=== PATIENT | female | born 1975 | race Caucasian/White ===

== ENCOUNTER 2024-04-20 06:43 | Day surgery (SDC) | payer BC ==
[2024-04-20] MEDS: Lactated Ringers 1,000 ML IV SCH (07:00)
[2024-04-20] MEDS ORDERED: Lidocaine 2% 5 ML SDV ONE (07:13)
[2024-04-20] MEDS ORDERED: Propofol 200 MG/20 ML SDV ONE (07:13)
[2024-04-20] MEDS ORDERED: Sodium Chloride 0.9% 10 ML Syringe FLUSH PRN (07:15)
[2024-04-20] MEDS ORDERED: Ondansetron 4 MG/2 ML SDV IVPUSH PRN (07:34)
[2024-04-20] MEDS ORDERED: HYDROmorphone 0.5 MG/0.5 ML Syringe IVPUSH PRN (07:34)
[2024-04-20] MEDS ORDERED: fentaNYL 100 MCG/2 ML SDV IVPUSH PRN (07:34)
[2024-04-20] MEDS ORDERED: Sodium Chloride 0.9% 10 ML Syringe FLUSH SCH (09:00)
== END 2024-04-20 08:25 | disposition home or self-care (01) ==
LOC: JD.SDS 06:43
PROVIDERS: ATTEND Surgery
DX: Z12.11 Encounter for screening for malignant neoplasm of colon (principal); D12.0 Benign neoplasm of cecum; K21.9 Gastro-esophageal reflux disease without esophagitis; F41.9 Anxiety disorder, unspecified; Z79.899 Other long term (current) drug therapy; Z88.0 Allergy status to penicillin; F17.200 Nicotine dependence, unspecified, uncomplicated
CPT/HCPCS: 45380; J2704; J7120; 00811; J3490

== ENCOUNTER 2024-06-01 07:54 | Inpatient (IN) | payer BC ==
[~2024-06-01 07:54] MED LIST: Dexamethasone 4 MG/ML 5 ML MDV ONE; Ketamine 200 MG/20 ML MDV ONE; Lidocaine 1% 5 ML VIAL ONE; Midazolam 1 MG/ML 2 ML SDV ONE; Ondansetron 4 MG/2 ML SDV ONE; Propofol 200 MG/20 ML SDV ONE; Rocuronium 50 MG/5 ML Vial ONE; fentaNYL 250 MCG/5 ML SDV ONE
[2024-06-01] MEDS: Lactated Ringers 1,000 ML IV SCH ×2 (08:10→21:51)
[2024-06-01] MEDS ORDERED: dexmedeTOMIDine HCl 200 MCG/2 ML SDV ONE (08:18)
[2024-06-01] MEDS: Levofloxacin/Dextrose 5%-Water 750 MG in Premix Bag 1 BAG IV ONE (08:30)
[2024-06-01] MEDS ORDERED: Sodium Chloride 0.9% 10 ML Syringe FLUSH PRN (08:44)
[2024-06-01] MEDS ORDERED: Phenylephrine 1% 10 MG/ML SDV ONE (09:13)
[2024-06-01] MEDS ORDERED: HYDROmorphone 0.5 MG/0.5 ML Syringe ONE ×3 (09:33→11:01)
[2024-06-01] MEDS: Bupivacaine 0.5% 30 ML SDV ONE (09:40)
[2024-06-01] MEDS: EPINEPHrine 1 MG/ML SDV ONE (09:40)
[2024-06-01] MEDS ORDERED: Rocuronium 50 MG/5 ML Vial ONE (10:02)
[2024-06-01] MEDS ORDERED: Lactated Ringers 1,000 ML ONE (10:24)
[2024-06-01] MEDS ORDERED: Sugammadex Sodium 200 MG/2 ML VIAL IV ONE (10:57)
[2024-06-01] MEDS ORDERED: Ketorolac 30 MG/ML SDV ONE (10:57)
[2024-06-01] MEDS ORDERED: Acetaminophen 325 MG Tab PO PRN (11:48)
[2024-06-01] MEDS ORDERED: oxyCODONE 5 MG Tab PO PRN (11:48)
[2024-06-01] MEDS ORDERED: Simethicone 80 MG Tab.Chew PO PRN (11:58)
[2024-06-01] MEDS ORDERED: HYDROmorphone 0.5 MG/0.5 ML Syringe IVPUSH PRN (11:59)
[2024-06-01] MEDS ORDERED: Ondansetron 4 MG/2 ML SDV IVPUSH PRN (11:59)
[2024-06-01] MEDS ORDERED: fentaNYL 100 MCG/2 ML SDV IVPUSH PRN (11:59)
[2024-06-01] MEDS ORDERED: Benzocaine/Cetylpyridinium/Menthol Lozenge MUCMEM PRN (11:59)
[2024-06-01] MEDS ORDERED: diphenhydrAMINE 50 MG/ML SDV IVPUSH PRN (11:59)
[2024-06-01] MEDS: Ondansetron 4 MG/2 ML SDV IVPUSH PRN ×2 (12:24→17:03)
[2024-06-01] MEDS ORDERED: Propofol 200 MG/20 ML SDV ONE (12:35)
[2024-06-01] MEDS: Sodium Chloride 0.9% 10 ML Syringe FLUSH SCH (13:32)
[2024-06-01] MEDS: metroNIDAZOLE/Normal Saline 500 MG in Premix Bag 1 BAG IV ONE (15:29)
[2024-06-01] MEDS: Promethazine 25 MG Tab PO PRN (19:33)
[2024-06-01] MEDS: HYDROmorphone 0.5 MG/0.5 ML Syringe IVPUSH PRN (19:59)
[2024-06-02 04:58] LABS: BASOPHILS ABSOLUTE AUTO 0.1 K/mm3 (0.0-0.2); BASOPHILS PERCENT AUTO 0.5 % (0.0-1.0); EOSINOPHILS PERCENT AUTO 0.1 % (0.0-6.0); HEMATOCRIT 39.7 % (37.0-47.0); HEMOGLOBIN 13.5 gm/dl (12.0-16.0); IMMATURE GRAN ABSOLUTE AUTO 0.03 K/mm3 (0.00-0.05); IMMATURE GRAN PERCENT AUTO 0.3 % (0.0-0.4); LYMPHOCYTES ABSOLUTE AUTO 2.4 K/mm3 (1.0-4.8); LYMPHOCYTES PERCENT AUTO 22.7 % (24.0-44.0); MEAN CORPUSCULAR HEMOGLOBIN 31.3 pg (28.0-32.0); MEAN CORPUSCULAR VOLUME 91.9 fl (83.0-99.0); MEAN PLATELET VOLUME 9.9 fl (9.4-12.3); MONOCYTES ABSOLUTE AUTO 0.9 K/mm3 (0.0-0.8); MONOCYTES PERCENT AUTO 8.8 % (0.0-8.0); NEUTROPHILS PERCENT AUTO 67.6 % (41.0-71.0); PLATELET COUNT,PLT 334 K/mm3 (150-400); RED BLOOD CELL COUNT 4.32 M/mm3 (4.10-5.30); WHITE BLOOD CELL COUNT,WBC 10.36 K/mm3 (3.9-11.3)
[2024-06-02 05:14] LABS: ANION GAP 13.8 (5-15); BUN/CREATININE RATIO 11.7 (14-18); CALCIUM 8.3 mg/dL (8.5-10.1); CREATININE 0.6 mg/dL (0.55-1.02); EST CRCL DRUG DOSING (CG) 81.93 mL/min; POTASSIUM,K 3.8 mEq/L (3.5-5.1)
[2024-06-02] MEDS: Pantoprazole 40 MG Tab.CR PO SCH (08:07)
[2024-06-02] MEDS: traMADol 50 MG Tab PO PRN (08:08)
[2024-06-02] MEDS: Nicotine 14 MG/24 Hr Patch TRDERM SCH (12:47)
[2024-06-02] MEDS: Ibuprofen 400 MG Tab PO PRN (15:59)
[2024-06-04 04:40] LABS: HEMATOCRIT 34.5 % (37.0-47.0); HEMOGLOBIN 11.7 gm/dl (12.0-16.0); MEAN CORPUSCULAR HEMOGLOBIN 31.2 pg (28.0-32.0); MEAN CORPUSCULAR HGB CONC 33.9 g/dl (32.0-36.0); MEAN PLATELET VOLUME 9.7 fl (9.4-12.3); PLATELET COUNT,PLT 253 K/mm3 (150-400); RED BLOOD CELL COUNT 3.75 M/mm3 (4.10-5.30); WHITE BLOOD CELL COUNT,WBC 6.58 K/mm3 (3.9-11.3)
[2024-06-04 05:02] LABS: ANION GAP 10.3 (5-15); CALCIUM 7.7 mg/dL (8.5-10.1); CREATININE 0.5 mg/dL (0.55-1.02); EST CRCL DRUG DOSING (CG) 106.46 mL/min; POTASSIUM,K 3.3 mEq/L (3.5-5.1)
[2024-06-04] MEDS: Ondansetron 4 MG Tab.DIS PO PRN (09:36)
== END 2024-06-04 10:05 | disposition home or self-care (01) | DRG 231 ==
LOC: JD.MS 07:54 → UNDOADMIN 07:54 → JD.MS 11:50
PROVIDERS: ADMIT Surgery; ATTEND Surgery
PROC: 0DTF4ZZ Resection of Right Large Intestine, Percutaneous Endoscopic Approach (ICD-10-PCS; principal; 2024-06-01 08:45)
PROC: 0DJ08ZZ Inspection of Upper Intestinal Tract, Via Natural or Artificial Opening Endoscopic (ICD-10-PCS; principal; 2024-06-01 08:45)
DX: D12.0 Benign neoplasm of cecum (principal); K21.9 Gastro-esophageal reflux disease without esophagitis; F12.90 Cannabis use, unspecified, uncomplicated; Z88.0 Allergy status to penicillin; Z79.899 Other long term (current) drug therapy; Z72.0 Tobacco use
CPT/HCPCS: 36415; 80048; 85025; 85027; 94760; A9270-GY; J0171; J0665; J1100; J1836; J1885; J1956; J2250; J2371; J2405; J2704; J3010; J3490; J7120; Q0169